=== PATIENT | female | born 1960 | race Caucasian/White ===

== ENCOUNTER 2025-01-20 17:09 | Emergency (ER) | payer OTHER ==
[~2025-01-20] VITALS: Ht 165.1 cm; Wt 72.6 kg
[2025-01-20 17:25] VITALS: BP 128/67
[2025-01-20] MEDS ORDERED: Ketorolac Tromethamine 15mg Vial IM ONE (17:35)
[2025-01-20] MEDS ORDERED: Robaxin750 MG PO (17:47)
[2025-01-22] MEDS ORDERED: CYCL10 PO (16:29)
== END 2025-01-20 18:02 | disposition home or self-care (01) ==
LOC: ER 17:09
DX: M76.32 Iliotibial band syndrome, left leg (principal); Z88.2 Allergy status to sulfonamides
CPT/HCPCS: 96372; 99282-25; J1885